=== PATIENT | male | born 1955 | race Caucasian/White ===

== ENCOUNTER 2022-04-21 15:27 | Emergency (ER) | payer OTHER ==
[2022-04-21] MEDS: Sodium Chloride 0.9% 2.5 ML Syringe FLUSH PRN (16:08)
[2022-04-21] MEDS: Sodium Chloride 0.9% 10 ML Syringe FLUSH PRN (16:08)
[2022-04-21 16:20] LABS: CARBON DIOXIDE,CO2 27.2 mmol/L (21.0-32.0)
[2022-04-21] MEDS: Aspirin 81 MG Tab.Chew PO ONE (16:21)
[2022-04-21] MEDS: Morphine 4 MG/ML VIAL IVPUSH ONE (16:21)
[2022-04-21] MEDS ORDERED: Sodium Chloride 0.9% 2.5 ML Syringe FLUSH PRN (16:51)
[2022-04-21] MEDS ORDERED: Sodium Chloride 0.9% 10 ML Syringe FLUSH PRN (16:51)
[2022-04-21] MEDS: Heparin Sodium 5,000 Units/ML Vial IVPUSH ONE (17:23)
[2022-04-21] MEDS: Heparin Sodium/0.45% NaCl 500 ML IV SCH (17:24)
[2022-04-21] MEDS: Clopidogrel 75 MG Tab PO ONE (17:24)
== END 2022-04-21 17:23 ==
LOC: MW.ED 15:27
DX: U07.1 COVID-19 (principal); I21.3 ST elevation (STEMI) myocardial infarction of unspecified site
CPT/HCPCS: 36415; 71045; 80053; 84484; 85025; 85379; 85610; 85730; 87635; 96374; 96375; 99285; A9270; J1644; J2270; J3490; U0002